=== PATIENT | male | born 1985 | race Caucasian/White ===

== ENCOUNTER 2019-08-13 05:23 | Day surgery (SDC) | payer OTHER ==
[2019-08-12 16:33] LABS: BASOPHILS # (AUTO) 0.1 X10'3 (0-0.2); BASOPHILS % (AUTO) 0.7 % (0-1); EOSINOPHILS # (AUTO) 0.2 X10'3 (0-0.9); EOSINOPHILS % (AUTO) 2.8 % (0-6); LYMPHOCYTES # (AUTO) 2.6 X10'3 (1.1-4.8); LYMPHOCYTES % (AUTO) 31.6 % (21-51); MEAN CORPUSCULAR HEMOGLOBIN 28.3 PG (27.0-31.0); MEAN CORPUSCULAR HGB CONC 34.1 g/dL (33.0-36.5); MEAN PLATELET VOLUME 8.3 FL (7.4-10.4); MONOCYTES # (AUTO) 0.7 X10'3 (0-0.9); MONOCYTES % (AUTO) 9.2 % (2-12); NEUTROPHILS # (AUTO) 4.5 X10'3 (1.8-7.7); NEUTROPHILS % (AUTO) 55.7 % (42-75); PRE OP HEMOGLOBIN 15.3 g/dL (14.0-17.9); PRE OP PLATELET COUNT 255 X10'3 (140-440); RED BLOOD COUNT 5.42 X10'6 (4.70-6.10); RED CELL DISTRIBUTION WIDTH 13.1 % (11.5-14.5)
[2019-08-12 16:46] LABS: ALBUMIN 4.1 G/DL (3.4-5.0); ALKALINE PHOSPHATASE 55 IU/L (46-116); BLOOD UREA NITROGEN 9 MG/DL (7-18); BUN/CREATININE RATIO 9.6 (5.4-32.0); CALCIUM 9.3 MG/DL (8.5-10.1); CHLORIDE 106 MMOL/L (99-107); CREATININE 0.94 MG/DL (0.60-1.10); PRE OP ANION GAP 10 (8-16); PRE OP AST 39 U/L (10-37); PRE OP BILIRUB, TOTAL 0.4 MG/DL (0.0-1.0); PRE OP GLUCOSE 87 MG/DL (70-104); PRE OP POTASSIUM 3.7 MMOL/L (3.4-5.1); PRE OP SODIUM 141 MMOL/L (135-145); TOTAL CARBON DIOXIDE 25.1 MMOL/L (24-32); TOTAL PROTEIN 8.2 G/DL (6.4-8.2); eGFR > 90 ML/MIN
[2019-08-12 16:47] LABS: PRE OP ALT 80 U/L (30-65)
[~2019-08-13] VITALS: Ht 170.2 cm; Wt 124.7 kg
[2019-08-13] VITALS (11 sets, daily range): BP systolic 131–157; BP diastolic 73–100
[~2019-08-13 05:23] MED LIST: ENAL5TAB PO; ringers solution, lacted 1,000 ML IV SCH
[2019-08-13] MEDS ORDERED: cefazolin/dext.iso 2gm/100ml 100 ML IV ONE (05:30)
[2019-08-13] MEDS ORDERED: famotidine 20mg tablet PO ONE (05:30)
[2019-08-13] MEDS ORDERED: ceFAZolin 1000mg inj ONE ×2 (07:04→07:39)
[2019-08-13] MEDS ORDERED: fentaNYL/PF 50MCG/1 ML 2ML syringe ONE ×2 (07:12→08:08)
[2019-08-13] MEDS ORDERED: MIDAZolam 5mg/5ml vial ONE (07:12)
[2019-08-13] MEDS ORDERED: LIDOcaine 2% (20mg/ml) 5ml vial ONE (07:12)
[2019-08-13] MEDS ORDERED: propofol inj 20 ML IV ONE (07:12)
[2019-08-13] MEDS ORDERED: ondansetron/PF 4mg/2ml inj ONE (07:13)
[2019-08-13] MEDS ORDERED: dexamethasone sod phosphate 4mg/ml inj. ONE (07:13)
[2019-08-13] MEDS ORDERED: sevoflurane 250ml liquid IH ONE (07:15)
[2019-08-13] MEDS ORDERED: ringers solution, lacted 1,000 ML IV SCH (07:46)
[2019-08-13] MEDS ORDERED: labetalol 20mg/4ml (5mg/ml) syringe IV PRN (07:50)
[2019-08-13] MEDS ORDERED: hydrALAZINE 20mg/ml inj. IV PRN (07:50)
[2019-08-13] MEDS ORDERED: fentaNYL/PF 50MCG/1 ML 2ML syringe IV PRN ×2 (07:50)
[2019-08-13] MEDS ORDERED: ondansetron/PF 4mg/2ml inj IV PRN (07:50)
[2019-08-13] MEDS ORDERED: morphine 4 MG/ML inj SYRINge IV PRN (07:50)
[2019-08-13] MEDS ORDERED: morphine 2 MG/ML inj. syringe IV PRN (07:50)
[2019-08-13] MEDS ORDERED: ceFAZolin 1000mg inj IR ONE (07:57)
[2019-08-13] MEDS ORDERED: acetaminophen 1,000mg/100ml IV 100 ML IV ONE (08:00)
--- NOTE | 2019-08-13 09:10 | NUR ---
Received from OR via BED , accompanied by Anesthesiologist DR HUSTON and report given by Anesthesiolgist. PATIENT WAKING UP, DENIES PAIN, V/S WNL, NEUROVASCULAR CHECKLS INTACT, 20G PIV TO LUE, SCD ON, DRESSING TO LEFT KNEE CDI W/ COLD POWDER PACK TO LEFT KNEE AND KNEE BRACE ON LOCKED IN EXTENSION .
[2019-08-13] MEDS ORDERED: HYDROcodone/acetaminophen 10/325mg tab PO PRN (09:15)
--- NOTE | 2019-08-13 10:20 | NUR ---
PATIENT A&OX4, DENIES PAIN, V/S WNL, NEUROVASCULAR CHECKLS INTACT, 20G PIV TO LUE D/C, SCD OFF, DRESSING TO LEFT KNEE CDI W/ COLD POWDER PACK TO LEFT KNEE AND KNEE BRACE ON LOCKED IN EXTENSION . CRUTCHES GIVEN TO PATIENT. . I HAVE REVIEWED D/C INSTRUCTIONS WITH PATIENT AND FAMILY WHO VERBALIZES UNDERSTANDING. PATIENT D/C HOME WITH ALL BELONGINGS, TRANSPORTED TO [facility] VIA .
== END 2019-08-13 10:20 | disposition home or self-care (01) ==
LOC: PAS 05:23
PROVIDERS: ATTEND Orthopaedic Surgery
DX: S83.512A Sprain of anterior cruciate ligament of left knee, initial encounter (principal); I10 Essential (primary) hypertension; E66.01 Morbid (severe) obesity due to excess calories; G89.18 Other acute postprocedural pain; X58.XXXA Exposure to other specified factors, initial encounter; Y93.89 Activity, other specified; Y92.89 Other specified places as the place of occurrence of the external cause; Y99.8 Other external cause status; Z79.899 Other long term (current) drug therapy; Z83.3 Family history of diabetes mellitus; Z82.49 Family history of ischemic heart disease and other diseases of the circulatory system; Z68.41 Body mass index [BMI] 40.0-44.9, adult
CPT/HCPCS: 29888; 36415; 64447; 76942; 80053; 82948; 85025; 93005; C1713; J0131; J0690; J1100; J2001; J2250; J2405; J2704; J3010; J7120; L1832; A4215; A4618; A6449; A7000